=== PATIENT | female | born 1960 | race Caucasian/White ===

== ENCOUNTER 2021-01-31 17:57 | Observation (INO) | payer SELFPAY ==
[2021-01-31 18:46] VITALS: BMI 34.7
[2021-01-31] MEDS ORDERED: hydrALAZINE 20 MG/ML VIAL SLOW IVP SCH (19:00)
[2021-01-31] MEDS ORDERED: Morphine 4 MG/ML VIAL SLOW IVP PRN (20:25)
[2021-01-31] MEDS ORDERED: Sodium Chloride 0.9% 1,000 ML IV SCH (20:30)
[2021-01-31] MEDS ORDERED: GoLYTELY 4,000 ml Bottle PO SCH (20:30)
[2021-01-31 21:14] LABS: Magnesium 1.7 mg/dL (1.6-2.6)
[2021-01-31 21:18] LABS: Troponin I Less than 0.010 ng/mL (< 0.028)
[2021-01-31] MEDS: NS 0.9% w/ 20 MEQ KCL 1,000 ML/1,000 ML BAG IV SCH (21:29)
[2021-01-31] MEDS: Pantoprazole 40 MG VIAL IVP SCH (21:31)
[2021-01-31] MEDS: Metoprolol Tartrate 50 MG TAB PO SCH (21:35)
[2021-01-31] MEDS: Simvastatin 10 MG TAB PO SCH (21:35)
[2021-01-31] MEDS: Morphine 4 MG/ML VIAL SLOW IVP PRN (21:37)
[2021-02-01] MEDS: Piperacillin/Tazobactam 3.375 GM in Sodium Chloride 0.9% 100 ML IVPB SCH ×3 (02:19→17:30)
[2021-02-01 04:21] LABS: #Basophils 0.1 10x3/uL (0.0-0.2); #Eosinphils 0.3 10x3/uL (0.0-0.5); #Monocytes 1.3 10x3/uL (0.0-1.1); #Neutrophils 9.5 10x3/uL (1.5-8.4); %Basophils 0.4 % (0.0-2.0); %Eosinophils 2.5 % (0.0-6.0); %Lymphocytes 18.8 % (18.0-47.0); %Monocytes 9.2 % (0.0-10.0); %Neutrophils 68.7 % (40.0-75.0); Hemoglobin 13.4 g/dL (12.0-15.5); Mean Corpuscular HGB CONC 33.3 g/dL (32.0-36.0); Mean Corpuscular Hemoglobin 30.9 pg (27.0-33.0); Mean Corpuscular Volume 93.1 fl (81.6-98.3); Mean Platelet Volume 10.1 fl (7.4-10.4); Platelet Count 324 10x3/uL (150-450); RBC Distribution Width 13.2 % (11.5-14.5); Red Blood Cell (RBC) Count 4.33 10x6/uL (3.90-5.03); White Blood Cell (WBC) Count 13.8 10x3/uL (3.5-10.5)
[2021-02-01 04:31] LABS: Anion Gap 14 mmol/L (10-20); BUN (Urea Nitrogen) 11 mg/dL (9.8-20.1); Calc. Creatinine Clearance 100 mL/min (70-130); Calcium 8.6 mg/dL (7.8-10.44); Carbon Dioxide 22 mmol/L (23-31); Chloride 112 mmol/L (98-107); Glucose 90 mg/dL (80-115); Potassium 3.7 mmol/L (3.5-5.1); Sodium 144 mmol/L (136-145)
[2021-02-01 04:37] LABS: Troponin I Less than 0.010 ng/mL (< 0.028)
[2021-02-01] MEDS: NS 0.9% w/ 20 MEQ KCL 1,000 ML/1,000 ML BAG IV SCH ×3 (05:41→21:19)
[2021-02-01] MEDS: Amlodipine 5 MG TAB PO SCH (09:34)
[2021-02-01] MEDS: Lisinopril 20 MG TAB PO SCH (09:35)
[2021-02-01] MEDS: Hydrochlorothiazide 25 MG TAB PO SCH (09:35)
[2021-02-01] MEDS: Allopurinol 100 MG TAB PO SCH (09:35)
[2021-02-01] MEDS: Metoprolol Tartrate 50 MG TAB PO SCH ×2 (09:35→21:20)
[2021-02-01] MEDS: Oxybutynin 5 MG TAB PO SCH (09:36)
[2021-02-01] MEDS: DULoxetine 30 MG CAP PO SCH (09:37)
[2021-02-01] MEDS: Pantoprazole 40 MG VIAL IVP SCH ×2 (09:37→21:22)
[2021-02-01] MEDS: Morphine 4 MG/ML VIAL SLOW IVP PRN ×3 (09:38→21:20)
[2021-02-01 13:41] LABS: Hemoglobin 12.8 g/dL (12.0-15.5)
[2021-02-01] MEDS ORDERED: GoLYTELY 4,000 ml Bottle PO SCH (14:45)
[2021-02-01] MEDS ORDERED: Oxybutynin 5 MG TAB PO SCH (17:00)
[2021-02-01] MEDS ORDERED: Nicotine 21 MG PATCH TOP SCH (18:15)
[2021-02-01] MEDS ORDERED: Pantoprazole 40 MG VIAL ONE (21:14)
[2021-02-01] MEDS: Simvastatin 10 MG TAB PO SCH (21:20)
[2021-02-02] MEDS: Piperacillin/Tazobactam 3.375 GM in Sodium Chloride 0.9% 100 ML IVPB SCH ×3 (00:49→15:44)
[2021-02-02 05:02] LABS: Hemoglobin 12.8 g/dL (12.0-15.5); Mean Corpuscular HGB CONC 33.3 g/dL (32.0-36.0); Mean Corpuscular Hemoglobin 30.8 pg (27.0-33.0); Mean Corpuscular Volume 92.5 fl (81.6-98.3); Mean Platelet Volume 10.2 fl (7.4-10.4); Platelet Count 310 10x3/uL (150-450); RBC Distribution Width 13.3 % (11.5-14.5); Red Blood Cell (RBC) Count 4.15 10x6/uL (3.90-5.03); White Blood Cell (WBC) Count 11.6 10x3/uL (3.5-10.5)
[2021-02-02 05:30] LABS: Anion Gap 13 mmol/L (10-20); BUN (Urea Nitrogen) 6 mg/dL (9.8-20.1); Calc. Creatinine Clearance 98 mL/min (70-130); Carbon Dioxide 24 mmol/L (23-31); Chloride 110 mmol/L (98-107); Glucose 82 mg/dL (80-115); Magnesium 1.7 mg/dL (1.6-2.6); Potassium 3.3 mmol/L (3.5-5.1); Sodium 144 mmol/L (136-145)
[2021-02-02] MEDS: Morphine 4 MG/ML VIAL SLOW IVP PRN (05:56)
[2021-02-02] MEDS ORDERED: PROPOFOL 40 ML ONE (07:53)
[2021-02-02] MEDS: NS 0.9% w/ 20 MEQ KCL 1,000 ML/1,000 ML BAG IV SCH ×2 (08:07→12:56)
[2021-02-02] MEDS: Metoprolol Tartrate 50 MG TAB PO SCH (08:08)
[2021-02-02] MEDS ORDERED: FLU VACC QS2021-22(6MOS UP)/PF 60 MCG/0.5 ML SYRINGE IM ONE (09:00)
[2021-02-02 12:54] VITALS: BP 142/79; TEMP 97.9
[2021-02-02] MEDS: Hydrochlorothiazide 25 MG TAB PO SCH (12:55)
[2021-02-02] MEDS: Allopurinol 100 MG TAB PO SCH (12:55)
[2021-02-02] MEDS: Amlodipine 5 MG TAB PO SCH (12:55)
[2021-02-02] MEDS: Lisinopril 20 MG TAB PO SCH (12:55)
[2021-02-02] MEDS: DULoxetine 30 MG CAP PO SCH (12:55)
[2021-02-02] MEDS: Pantoprazole 40 MG VIAL IVP SCH (12:56)
[2021-02-02] MEDS: Oxybutynin 5 MG TAB PO SCH (12:56)
[2021-02-02] MEDS ORDERED: Ondansetron PF 4 MG/2 ML Vial IVP PRN (13:02)
== END 2021-02-02 16:05 | disposition home or self-care (01) ==
LOC: CSHTELE 17:57 → INTOOBSV 17:57
PROVIDERS: ADMIT Internal Medicine; ATTEND Internal Medicine
PROC: 0DBK8ZZ Excision of Ascending Colon, Via Natural or Artificial Opening Endoscopic (ICD-10-PCS; principal; 2021-01-31)
PROC: 0DBM8ZZ Excision of Descending Colon, Via Natural or Artificial Opening Endoscopic (ICD-10-PCS; 2021-01-31)
DX: K92.2 Gastrointestinal hemorrhage, unspecified (principal); R07.9 Chest pain, unspecified; D12.4 Benign neoplasm of descending colon; K52.9 Noninfective gastroenteritis and colitis, unspecified; I10 Essential (primary) hypertension; M79.7 Fibromyalgia; E78.5 Hyperlipidemia, unspecified; M10.9 Gout, unspecified; E86.9 Volume depletion, unspecified; F17.210 Nicotine dependence, cigarettes, uncomplicated; Z79.899 Other long term (current) drug therapy; Z79.82 Long term (current) use of aspirin
CPT/HCPCS: 76856; 80048; 83735; 84484; 85014; 85027; 86304; 86850; 86900; 86901; 88305; 93005; 93010; 93306; 96374; 96375; 96376; C9113; G0378; J0360; J2270; J2543; J2704; J3480; J3490; J7050